=== PATIENT | male | born 1965 | race American Indian/Alaskan Native ===

== ENCOUNTER 2016-09-29 14:07 | Outpatient (CLI) | payer OTHER ==
--- NOTE | 2016-09-30 10:16 | Cat Scan Report ---
CT ORBIT/EAR/FOSSA WITHOUT CONTRAST INDICATION: Cholesteatoma right ear. COMPARISON: 12/31/2015. FINDINGS: Noncontrast axial, sagittal and coronal CT reconstructions through the orbit/ear/fossa again demonstrate partial right mastoidectomy with mild mucosal thickening/soft tissue density in the right middle ear, again somewhat rounded in the region of the attic with approximately 4-5 mm cholesteatoma not excluded. Scutum again eroded. Tegmen tympani thinning may again be present, not entirely excluded subtly eroded. Right middle ear ossicles again noted destroyed/not well-seen. Left middle ear, including the ossicles appear unremarkable. Clear left mastoid air cells. Slight right frontoethmoid mucosal thickening. Clear remainder imaged anterior paranasal sinuses. Normal eye globes. Nasal septum fairly midline. Normal imaged intracranial appearance. CONCLUSION: Persistent mucosal thickening in the residual right mastoid air cells and right middle ear with approximately 4-5 mm cholesteatoma on the right again not excluded, as described. Tegmen tympani thinning with subtle erosion on the right also not excluded. Please correlate. Thank you for the opportunity to participate in this patient's care.
== END 2016-09-29 14:08 | disposition home or self-care (01) ==
LOC: CT 14:07
PROVIDERS: ATTEND Internal Medicine
DX: H70.11 Chronic mastoiditis, right ear (principal); H71.91 Unspecified cholesteatoma, right ear
CPT/HCPCS: 70480